=== PATIENT | female | born 1965 | race American Indian/Alaskan Native ===

== ENCOUNTER 2017-08-20 16:05 | Outpatient (CLI) | payer OTHER ==
--- NOTE | 2017-08-23 14:33 | Vascular Lab Report ---
Right Lower Extremity Venous Duplex Study: Reason for Exam: Cellulitis and swelling of the right lower extremity. Comments on the Right: All veins visualized are freely compressible without evidence of internal echogenicity. Flow is spontaneous and phasic throughout. No evidence of acute or chronic thrombus is seen in any of the vessels visualized. Comments on the Left: A limited duplex study was done of the proximal veins of the left lower extremity. All veins visualized are freely compressible without evidence of internal echogenicity. Flow is spontaneous and phasic throughout. No evidence of acute or chronic thrombus is seen in any of the vessels visualized. Impression: No evidence of acute or chronic deep venous thrombosis in the right lower extremity.
== END 2017-08-20 16:06 | disposition home or self-care (01) ==
LOC: VAS 16:05
PROVIDERS: ATTEND Physician Assistant
DX: L03.115 Cellulitis of right lower limb (principal); M79.89 Other specified soft tissue disorders